=== PATIENT | female | born 1955 | race Caucasian/White ===

== ENCOUNTER 2017-06-26 19:29 | Emergency (ER) | payer BC ==
[~2017-06-26] VITALS: Ht 170.2 cm; Wt 76.3 kg
[2017-06-26 19:32] VITALS: TEMP 37; Ht 170.2 cm; Wt 76.3 kg
--- NOTE | 2017-06-26 20:11 | EMERGENCY ROOM VISIT NOTE ---
History First contact with patient: 19:35 Chief Complaint: SHOULDER PAIN Stated Complaint: FALL,R SHOULDER PAIN History of Present Illness The patient is a 62 year old female who presents to the Emergency Room with complaints of right shoulder pain after sustaining a fall prior to arrival. The patient was putting up [place] lights. She was standing on a stool 6 inches off the ground. She thinks that she may have landed on her shoulder. She denies hitting her head. She denies any other pain. The pain is worse with movement. She denies any pain into the elbow or wrist. She has not taken anything for pain. No previous injury to the shoulder. She denies any difficult breathing. Review of Systems 6 system review negative. Please see pertinent positives in the history of present illness section. Past Medical/Surgical History Otherwise healthy Social History Smoking Status: Never Smoker Marital Status: Housing Status: lives with family Current/Historical Medications Scheduled PRN Oxycodone/Acetaminophen 5MG/325MG (Percocet 5MG/325MG), 1 TAB PO Q4H PRN for Pain Allergies Coded Allergies: No Known Allergies (Unverified , 06/26/17) Physical Exam Vital Signs Date Time Temp Pulse Resp B/P (MAP) Pulse Ox O2 Delivery O2 Flow Rate FiO2 06/26/17 21:40 82 129/90 96 06/26/17 19:32 37.0 92 18 140/76 99 Room Air Physical Exam VITALS: Vitals are noted on the nurse's note and reviewed by myself. Vital signs stable. GENERAL: 62-year-old female, in no acute distress, nondiaphoretic, well- developed well-nourished. SKIN: The skin was without rashes, erythema, edema, or bruising. HEAD: Normocephalic atraumatic. MUSCULOSKELETAL: RUE: Mild tenderness to palpation over the anterior aspect of the right shoulder. No tenderness over the distal clavicle. No tenderness over the lateral aspect of the shoulder. Severe pain/weakness noted with flexion of the shoulder. Radial pulse +2. Digital Operations Analyst strength 5/5. Also difficulty with abduction of the shoulder NEURO: Patient was alert and oriented to person place and time. Normal sensation to touch. No focal neurological deficits. Medical Decision & Procedures ER Provider Diagnostic Interpretation: Shoulder x-ray IMPRESSION: There is an impacted fracture of the right humeral neck extending through the right humeral head as above. Electronically signed by: Robel Palacios M.D. 06/26/2017 8:23 PM Dictated Date/Time: 06/26/2017 8:22 PM The status of this report is Signed. Draft = Not yet reviewed or approved by Radiologist. Signed = Reviewed and approved by Radiologist. Medications Administered Medications (Trade) Dose Ordered Sig/Luis Enrique Route Start Time Stop Time Status Last Admin Dose Admin Oxycodone/ Acetaminophen (Percocet 5/ 325MG Home Pack) 1 homepack UD ONCE PO 06/26/17 21:15 06/26/17 21:16 DC 06/26/17 21:37 1 HOMEPACK ED Course The patient was seen and examined She declined pain medication Imaging was performed and reviewed The patient was reassessed. We discussed the results. She voiced understanding. She was put in a sling. She was given a home pack of Percocet Discharge instructions were reviewed, and she was discharged in good condition Medical Decision Differential diagnosis: Fracture, contusion, dislocation, ligamentous injury This patient is a 62-year-old female that presents to the emergency department with complaints of right shoulder pain after sustaining a fall from a small stool. On exam, she was tender over the lateral aspect of the proximal shoulder. She had difficulty with flexion and abduction. She was neurovascularly intact distally. Imaging reveals an impacted proximal humerus fracture. The patient did not require any analgesics in the emergency department. She was put in a sling, and instructed to follow-up with orthopedics. She will ice the shoulder intermittently. She was a given a home pack of Percocet and instructed to take ibuprofen. She was comfortable with this plan of care. She agrees to return to the emergency department with any new or concerning symptoms This chart was completed in part utilizing [employer] Speech Voice Recognition software. Attempts were made to minimize the grammatical errors, random word insertions, pronoun errors and incomplete sentences. Any formal questions or concerns about the content, text or information contained within the body of this dictation should be directly addressed to the provider for clarification. Impression Primary Impression: Proximal humerus fracture Departure Information Dispostion Home / Self-Care Condition GOOD Prescriptions Oxycodone/Acetaminophen 5MG/325MG (PERCOCET 5MG/325MG) Tab 1 TAB PO Q4H Y for Pain, #15 TAB For Initial Treatment Prov: Anahi Storm PA-C 06/26/17 Referrals No Doctor, Assigned (PCP) Kedar Rivas D.O. Patient Instructions My [facility] Additional Instructions You were evaluated in the emergency department for right shoulder pain. You have a fracture in the humerus bone. These keep the arm in a sling. Apply ice for 20 minute intervals to the affected area. Please call the orthopedic doctors office in the morning for a follow-up appointment. Ibuprofen 600 mg every 6 hours Percocet 1-2 tabs every 4 hours for severe pain. Do not drink alcohol or drive while taking this medication. This may be taken with ibuprofen, but avoid Tylenol. Please do not hesitate to return to the emergency department with a new, worsening or concerning symptoms
--- NOTE | 2017-06-26 20:24 | DIAGNOSTIC IMAGING REPORT ---
RIGHT SHOULDER 4 VIEWS CLINICAL HISTORY: Fall with right arm pain. FINDINGS: 4 views of the right shoulder are obtained. No prior studies are available for comparison at the time of dictation. The skeletal structures are osteopenic. There is an impacted fracture of the right humeral neck. Fracture extends through the lateral aspect of the humeral head and there is mild lateral distraction of the greater tuberosity. Overlying soft tissue edema is noted. No additional fracture is seen. No dislocation is identified. The visualized right lung parenchyma appears clear noting a calcified granuloma. IMPRESSION: There is an impacted fracture of the right humeral neck extending through the right humeral head as above. Electronically signed by: Robel Palacios M.D. 06/26/2017 8:23 PM Dictated Date/Time: 06/26/2017 8:22 PM
[2017-06-26] MEDS ORDERED: OXYC-57 PO (21:12)
[2017-06-26] MEDS ORDERED: PERCOCET HOME PACK PO ONE (21:15)
[2017-06-26 21:40] VITALS: BP 129/90; PULSE 82; O2SAT 96
== END 2017-06-26 21:45 | disposition home or self-care (01) ==
LOC: C.EDB 19:30 → C.EDD 21:45
DX: S42.201A Unspecified fracture of upper end of right humerus, initial encounter for closed fracture (principal); W19.XXXA Unspecified fall, initial encounter

== ENCOUNTER → 2017-07-03 | Outpatient (CLI) | payer BC ==
[~2017-07-03] MED LIST: OXYC-57 PO
--- NOTE | 2017-07-03 12:39 | DIAGNOSTIC IMAGING REPORT ---
RIGHT SHOULDER CT CT DOSE: 394.83 mGycm HISTORY: DISPLACED FX OF GREATER TUBEROSITY OF RT HUMERUS TECHNIQUE: Multiaxial CT images of the right shoulder were performed and reformatted in the sagittal and coronal plane without the use of contrast. A dose lowering technique was utilized adhering to the principles of ALARA. COMPARISON: Right shoulder 06/26/2017. FINDINGS: Redemonstration of the slightly comminuted fracture at the greater tuberosity the right humerus. This demonstrates up to 3 mm of distraction. This does not clearly extend through the humeral neck. No dislocation. The right scapula, right clavicle, and visualized right ribs are intact. Calcified granuloma within the right lower lobe. Small right shoulder effusion. IMPRESSION: No change in the slightly comminuted and slightly distracted fracture within the greater tuberosity the right humerus. No dislocation. Electronically signed by: Thor Hernandez M.D. 07/03/2017 12:38 PM Dictated Date/Time: 07/03/2017 12:31 PM
== END | disposition home or self-care (01) ==
LOC: C.CTS 11:30
PROVIDERS: ATTEND Orthopaedic Surgery Sports Medicine
DX: S42.251A Displaced fracture of greater tuberosity of right humerus, initial encounter for closed fracture (principal); X58.XXXA Exposure to other specified factors, initial encounter